=== PATIENT | male | born 1940 | race Caucasian/White ===

== ENCOUNTER 2024-05-22 12:51 | Inpatient (IN) | payer MEDICARE ==
[~2024-05-22] VITALS: Ht 180.3 cm; Wt 93.4 kg
[2024-05-22 13:00] VITALS: BP_SYST 151
--- NOTE | 2024-05-22 13:50 | NUR ---
Pt. arrived to the floor with EMS. Pt. transfered to the bed. IV infusing per orders to rt. forearm site.
[2024-05-22] MEDS ORDERED: *Potassium Replacement Protocol MC SCH (14:00)
[2024-05-22 14:24] LABS: HEMOGLOBIN 12.8 g/dl (13.5-18.0); MEAN CELL VOLUME 88 fl (80.0-100.0); MEAN CORPUSCULAR HEMOGLOBIN 31 pg (27-31); MEAN CORPUSCULAR HGB CONC 35 g/dl (33.0-37.0); PLATELET COUNT 131 K/mm3 (130-400); RED BLOOD COUNT 4.13 M/mm3 (4.20-5.60); REDCELL DISTRIBUTION WIDTH-CV 15.6 % (11.5-14.5)
[2024-05-22 14:29] LABS: HEMATOCRIT 36.2 % (42.0-52.0)
[2024-05-22 14:38] LABS: CALCIUM 9.1 mg/dL (8.4-10.2); CREATININE, serum 1.01 mg/dL (0.72-1.25); POTASSIUM 3.9 mEq/L (3.5-4.5)
--- NOTE | 2024-05-22 14:50 | NUR ---
Pt. resting in bed with at bedside. Pt. is A&OX3, assessment compete. IV to rt. forearm patent. Pt. has 2 skin tears to rt. lateral forearm, area is scabbed. Bottom with reddness that is blanchable, will monitor. Pt. reports pain at a 7 on pain scale. Will give meds when orders. Pt. denies further needs. Call light within reach.
[2024-05-22] MEDS ORDERED: BYSTOLIC5 MG PO (14:56)
[2024-05-22] MEDS ORDERED: B-12 500 MCG PO (14:56)
[2024-05-22] MEDS ORDERED: COMTAN 200MG T200 MG PO (14:57)
[2024-05-22] MEDS ORDERED: DITROPAN XL 5MG5 M1 PO (14:58)
[2024-05-22] MEDS ORDERED: NATURAL E400 IU PO (14:59)
[2024-05-22] MEDS ORDERED: MEVACOR 20M20 MG/TAB PO (14:59)
[2024-05-22 15:00] VITALS: BP_SYST 151
[2024-05-22] MEDS ORDERED: PLAVIX 75MG TAB75 MG PO (15:00)
[2024-05-22] MEDS ORDERED: PROVIGIL200 MG PO (15:00)
[2024-05-22] MEDS ORDERED: SINEMET 25/101 UDTAB PO (15:01)
[2024-05-22] MEDS ORDERED: ARICEPT 5MG PO (15:02)
[2024-05-22] MEDS ORDERED: REQUIP XL2 MG PO (15:03)
[2024-05-22] MEDS ORDERED: Modafinil 100 MG TAB PO SCH (15:41)
[2024-05-22] MEDS ORDERED: NS 1,000 ML IV SCH (15:45)
[2024-05-22] MEDS ORDERED: Atorvastatin 40 MG TAB PO ONE (15:45)
[2024-05-22 16:00] VITALS: BP 151/81; PULSE 80; TEMP 98.2
[2024-05-22] MEDS ORDERED: Ondansetron 4 MG/2 ML VIAL IV PRN (16:00)
[2024-05-22] MEDS ORDERED: Morphine 4 MG/ML VIAL IV PRN (16:00)
[2024-05-22] MEDS ORDERED: Acetaminophen 325 MG TAB PO PRN (16:00)
--- NOTE | 2024-05-22 17:15 | NUR ---
Received report from RADHA Burgos. Pt's Griffin leaking. Repositioned Griffin. Griffin Balloon had 9 cc water, added 5 cc. Total of 14cc in balloon. Pt messing with IV and pulled IV out of R forearm. RADHA Vazquez placed 20G in L forearm. Wrapped jacquie bandage around IV. Normal Saline running at 100 cc/hr. Pt has no further needs at this time. Call light in reach and bed alarm on.
[2024-05-22 19:56] VITALS: BP 157/71; PULSE 78; TEMP 98.3
--- NOTE | 2024-05-22 20:00 | NUR ---
PATIENT IS CONFUSED WITH A HX OF DEMENTIA & PARKINSON'S. VSS. DAY SHIFT RN GOT ORDER TO DC TELE PATIENT KEPT PULLING IT OFF REPEATEDLY, SEE ORDERS. PATIENT ALSO PULLED OUT HIS IV BEFORE SHIFT CHANGE AND DAY SHIFT RN PLACED A NEW IV INTO LEFT FORARM, COVERED SITE WITH COBAN, AND IV FLUIDS INFUSING VIA PUMP. PATIENT NPO @ MIDNIGHT FOR SURGERY IN AM. EVENING MEDS GIVEN WITH SIPS. PATIENT SEEMS RESTLESS AND APPEARED TO BE UNCOMFORTABLE, GAVE PRN NORCO WITH HS MEDS. PATIENT ALSO PULLING AT SMITH AND SNAPPED STAT LOCK OFF, REPLACED STAT LOCK AND SMITH TO DD WITH MOD AMOUNTS OF BRANDAN COLORED URINE NOTED. HEAD TO TOE ASSESSMENT COMPLETE. CALL LIGHT IN REACH. BED ALARM ON. PATIENT ROOM ACCROSS FROM NURSES STATION.
[2024-05-22 21:08] VITALS: BP_SYST 157
--- NOTE | 2024-05-22 21:45 | NUR ---
PATIENT SET OFF BED ALARM AND HAD FRACTURED LEG OVER BED RAIL AND WAS TRYING TO GET UP. PATIENT HAD SMITH IN HIS HAND AND WAS TRYING TO PULL IT OUT, BALLOON INFLATED, NURSING WAS ABLE TO STOP HIM. PATIENT REPOSITIONED UP IN BED. NOTIFIED HOSPITALIST, KELVIN APPLIED TO MARCIAE. PATIENT RESTING IN BED WITH CALL LIGHT, BED ALARM ON AND NURSING ABLE TO VIEW HIM.
[2024-05-22 23:04] VITALS: BP 123/68; PULSE 87; TEMP 97.7
[2024-05-23] VITALS (17 sets, daily range): BP systolic 138–162; BP diastolic 57–85; PULSE 66–90; TEMP 97.5–98.8
--- NOTE | 2024-05-23 01:00 | NUR ---
PATIENT YELLING OUT BUT SETTLED DOWN EASILY WHEN NURSING ENTERED ROOM. PATIENT DIDN'T KNOW WHERE HE WAS, HE HAS A HX OF DEMENTIA. PATIENT HAS NOT PULLED AT IV OR SMITH WITH MITTS INPLACE AND HAS BEEN RESTING OFF & ON.
--- NOTE | 2024-05-23 04:45 | NUR ---
PATIENT CALM, HAS BEEN SLEEPING, NOT RESTLESS OR AGGITATED. BUE MITTS REMOVED.
[2024-05-23 06:20] LABS: BASO # 0.1 K/mm3 (0.0-0.2); BASO % 0.6 % (0.0-2.0); EOS # 0.3 K/mm3 (0.0-0.7); EOS % 2.6 % (0.0-4.0); GRAN # 7.9 K/mm3 (1.4-6.5); GRAN % 79.1 % (42.2-75.2); HEMOGLOBIN 12.8 g/dl (13.5-18.0); LYMPH # 0.7 K/mm3 (1.2-3.4); LYMPH % 7.2 % (20.0-51.0); MEAN CELL VOLUME 87 fl (80.0-100.0); MEAN CORPUSCULAR HEMOGLOBIN 31 pg (27-31); MEAN CORPUSCULAR HGB CONC 35 g/dl (33.0-37.0); MONO # 0.9 K/mm3 (0.1-0.6); MONO % 9.4 % (1.7-9.3); PLATELET COUNT 121 K/mm3 (130-400); RED BLOOD COUNT 4.18 M/mm3 (4.20-5.60); REDCELL DISTRIBUTION WIDTH-CV 15.6 % (11.5-14.5)
[2024-05-23 06:40] LABS: ALBUMIN 3.2 g/dL (3.4-4.8); CALCIUM 8.8 mg/dL (8.4-10.2); CREATININE, serum 0.92 mg/dL (0.72-1.25); MAGNESIUM 1.9 mg/dL (1.6-2.6); PHOSPHOROUS 2.4 mg/dL (2.3-4.7)
[2024-05-23 06:42] LABS: HEMATOCRIT 36.5 % (42.0-52.0)
--- NOTE | 2024-05-23 08:49 | NUR ---
Pt resting in bed with pain 9/10 in right hip and ribs. PRN pain medication provided per emar. At shift change pt A/O x2 and this nurse attempted to reorient. At this time pt able to answer all orientation questions and follow commands. at bedside, signed surgical consents, pt remains NPO, mepolex to right forearm for 2 skin tears CDI. No needs at this time, will continue to monitor.
[2024-05-23] MEDS ORDERED: ROPINIROLE 2 MG PO SCH (09:00)
[2024-05-23] MEDS ORDERED: Bisoprolol 5 MG TAB PO SCH (09:00)
[2024-05-23] MEDS ORDERED: fentaNYL 50 MCG/ML 2 ML VIAL ONE (10:07)
[2024-05-23] MEDS ORDERED: Lidocaine PF 2% (20 MG/ML) 5 ML VIAL ONE (10:08)
[2024-05-23] MEDS ORDERED: Morphine 4 MG/ML VIAL IV PRN (10:30)
[2024-05-23] MEDS ORDERED: Mag/Al Hydrox/Simeth Susp 30 ML CUP PO PRN (10:30)
[2024-05-23] MEDS ORDERED: diphenhydrAMINE 25 MG CAP PO PRN (10:30)
[2024-05-23] MEDS ORDERED: diphenhydrAMINE 50 MG/ML 1 ML VIAL IV PRN (10:30)
[2024-05-23] MEDS ORDERED: Naloxone 0.4 MG/ML VIAL IV PRN (10:30)
[2024-05-23] MEDS ORDERED: Docusate Sodium 100 MG CAP PO PRN (10:30)
[2024-05-23] MEDS ORDERED: Magnes Hydrox (MOM) 80 MG/ML 30 ML CUP PO PRN (10:30)
[2024-05-23] MEDS ORDERED: dexAMETHasone 10 MG/ML VIAL ONE (10:45)
[2024-05-23] MEDS ORDERED: Ondansetron 4 MG/2 ML VIAL ONE (10:45)
[2024-05-23] MEDS ORDERED: HYDROmorphone 1 MG/1 ML SYRINGE [PACU/SDC ONLY] IV PRN (11:00)
[2024-05-23] MEDS ORDERED: Ondansetron 4 MG/2 ML VIAL IV PRN (11:00)
[2024-05-23] MEDS ORDERED: Morphine 2 MG/1 ML VIAL [PACU/SDC ONLY] IV PRN (11:00)
[2024-05-23] MEDS ORDERED: droPERidol 2.5 MG/ML 2 ML VIAL IV PRN (11:00)
[2024-05-23] MEDS ORDERED: fentaNYL 50 MCG/ML 1 ML SYRINGE/VIAL [PACU/SDC ONLY] IV PRN (11:00)
[2024-05-23] MEDS ORDERED: Meperidine 50 MG/ML 1 ML VIAL IV PRN (11:00)
--- NOTE | 2024-05-23 11:22 | NUR ---
JUNIOR met with patient and his Joceline ([phone]) to complete initial assessment for discharge planning. Patient sleeping during most of visit due to medication. verified that they live in [place], [place], patient sees Dr. Ronald Tsai as his PCP and uses [facility]. Patient has a FWW, rollator walker, shower chair and grab bars. states patient has a CPAP but doesn't use it. reports to be DPOA and can provide a copy for chart. Patient is mostly independent with activities but does not drive anymore due to Parkinson's Disease per report. stated patient is scheduled for surgery this morning and they are asking for referral to [facility]. Referral will be faxed for review. Discharge plan: [facility]
--- NOTE | 2024-05-23 12:05 | NUR ---
Pt up from PACU at this time very drowsy but able to obey verbal commands. Vitals stable on 2L NC, 2 incisions to right hip CDI with gauze and tegaderm, family at bedside. Will continue to allow pt to rest before any PO intake. Call light within reach.
--- NOTE | 2024-05-23 14:16 | NUR ---
D: Stuffing Machine Operator stopped by room on rounds. A: Pt was asleep with and son in the room. Pt had just arrived back from surgery. Family asked for prayer for a quick recovery. Stuffing Machine Operator prayed with everyone in the room. Family appreciated the visit. P: Stuffing Machine Operator informed family that if they needed anything from the still operator helper area to let their nurse know. Stuffing Machine Operator will follow up as needed.
[2024-05-23] MEDS ORDERED: ceFAZolin 2 G in Water For Injection,Sterile 20 ML IV SCH (15:00)
--- NOTE | 2024-05-23 16:30 | NUR ---
Pt resting in bed with eyes closed and family at bedside. Pt will open eyes and follow commands but very few verbal responses. When this nurse asked about pain pt drifted off to sleep. Pt tolerating sponge to keep mouth wet for comfort. Pt able to feel touch on bottom of foot but unable to describe sensation at this time. Pt able to move toes, cap refil < 3 seconds, skin pink and warm. TEDs and SCDs in place, vitals stable, no needs at this time, will continue to monitor.
--- NOTE | 2024-05-23 20:00 | NUR ---
PATIENT IS CONFUSED WITH A HX OF DEMENTIA & PARKINSON'S. DAY SHIFT REPORTS PATIENT WAS A&O DURING THE DAY. PATIENT IS ORIENTED TO PERSON AND TIME OF DAY BUT NOTHING ELSE. VSS. PATIENT VERY DROWSY POST OP AND RN REPORTED HE SLEPT MOST OF THE DAY. IV FLUIDS INFUSING VIA PUMP INTO LEFT FORARM IV. SMITH TO DD WITH MOD AMOUNTS OF YELLOW URINE NOTED. HEAD TO TOE ASSESSMENT COMPLETE. HS MEDS CRUSHED AND GIVEN IN APPLESAUCE DUE TO POSTOP DROWSINESS, TOLERATED WELL. TEDS & SCD'S INPLACE. NO OTHER NEEDS AT THIS TIME. CALL LIGHT IN REACH. BED ALARM ON. PATIENT ACROSS FROM NURSES STATION.
[2024-05-23] MEDS ORDERED: Melatonin 3 MG TAB PO PRN (21:00)
--- NOTE | 2024-05-23 21:55 | NUR ---
PATIENT PULLED IV SITE OUT AGAIN FOR THE SECOND NIGHT IN A ROW. DAY SHIFT REPORTS HE WAS A&O BUT HE IS ONLY ORIENTED TO PERSON AT THIS TIME. PATIENT SEEMS TO HAVE SUFFER FROM SUNDOWNERS. PATIENT ALSO SNAPPED HIS SMITH STAT LOCK OFF AND BROKE IT. HOSPITALIST NOTIFIED, KELVIN STERN APPLIED, SEE NEW MED ORDERED.
[2024-05-23] MEDS ORDERED: traZODone 50 MG TAB PO SCH (22:15)
[2024-05-24] VITALS (13 sets, daily range): BP systolic 122–159; BP diastolic 64–77; PULSE 64–77; TEMP 97.6–98.8
[2024-05-24 08:08] LABS: BASO # 0.1 K/mm3 (0.0-0.2); BASO % 0.5 % (0.0-2.0); EOS % 0.4 % (0.0-4.0); HEMATOCRIT 35.9 % (42.0-52.0); HEMOGLOBIN 12.6 g/dl (13.5-18.0); LYMPH % 9.9 % (20.0-51.0); MEAN CELL VOLUME 88 fl (80.0-100.0); MEAN CORPUSCULAR HEMOGLOBIN 31 pg (27-31); MEAN CORPUSCULAR HGB CONC 35 g/dl (33.0-37.0); PLATELET COUNT 128 K/mm3 (130-400); RED BLOOD COUNT 4.06 M/mm3 (4.20-5.60); REDCELL DISTRIBUTION WIDTH-CV 15.8 % (11.5-14.5)
[2024-05-24 08:44] LABS: ALBUMIN 2.9 g/dL (3.4-4.8); CALCIUM 8.5 mg/dL (8.4-10.2); CREATININE, serum 1.09 mg/dL (0.72-1.25); MAGNESIUM 1.9 mg/dL (1.6-2.6); PHOSPHOROUS 2.7 mg/dL (2.3-4.7)
[2024-05-24] MEDS ORDERED: Clopidogrel 75 MG TAB PO SCH (09:00)
--- NOTE | 2024-05-24 10:53 | NUR ---
JUNIOR resent referral to [facility] due to JUNIOR Larrydwayne being notified that they did not receive the complete referral packet. Referral also faxed to [facility] and [facility] per 's request. Discharge plan: [facility]
--- NOTE | 2024-05-24 13:16 | NUR ---
health worker attended clinical rounding and was informed pt can discharge tomorrow. JUNIOR called [facility] and spoke with the nurse's desk who reports their DON is out, but they are still reviewing and will have an question soon. She questioned if nursing homes were discussed. JUNIOR advised it did not appear so from the inital intake as [facility] was their first choice. JUNIOR met with pt and informed him of the [facility] still reviewing and wanting to discuss nursing homes. SW left the Medicare.gov list of SNF's in his room. Pt was slow to process and did not appear to fully comprehend in the morning, he does state he will review with his and she could drive him to [facility]. JUNIOR called , Joceline and obtained second options due to [facility] still reviewing and being able to discharge. Medicare.gov list was reviewed via phone due to her not visiting today. She was interested in [facility] and [facility], but first choice is [facility]. JUNIOR was later informed pt was accepted to [facility]. JUNIOR called who was agreeable to this. Discharge Plan: [facility] tomorrow
--- NOTE | 2024-05-24 16:03 | NUR ---
JUNIOR received call from Amy at [facility] with multiple questions related to referral. JUNIOR reviewed chart and discovered patient is accepted to [facility] for discharge tomorrw. JUNIOR called Amy at [facility] back to notify her of secured placement.
--- NOTE | 2024-05-24 16:50 | NUR ---
SMITH CATHETER DISCONTINUED PER ORDERS TIP INTACT PT TOLERATE WELL.
--- NOTE | 2024-05-24 19:29 | NUR ---
SHIFT ASSESSMENT COMPLETE. VSS. PATIENT RESTING IN BED WATCHING TV. PATIENT CURRENTLY A&O X4 AT THIS TIME, RECEIVED IN REPORT HIS CONFUSION COMES AT NIGHT. WILL CONTINUE TO MONITOR THROUGHT THE NIGHT. ALL NIGHT MEDS GIVEN ORDERED. PATIENT STATES NO PAIN AT THIS TIME. BED ALARM ON AND CALL LIGHT IN REACH
[2024-05-25 00:14] VITALS: BP 145/79; PULSE 65; TEMP 98
[2024-05-25 00:17] VITALS: BP_SYST 145
[2024-05-25 03:51] VITALS: BP 127/71; PULSE 62; TEMP 98
[2024-05-25 04:59] VITALS: BP_SYST 127
--- NOTE | 2024-05-25 05:35 | NUR ---
PATIENT HAD A LITTLE TROUBLE GETTING TO SLEEP LAST AND SLEEPING THROUGHT THE NIGHT. GAVE PATIENT SOME PRN SLEEP AID TO HELP, BUT THAT WAS NOT VERY SUCCESSFUL. PATIENT HAD ONEEPISIOD OF CONFUSION EARLY THIS AM BUT WAS REORIANTED EASILY. PATIENT EXPRESSED PAIN IN RIGHT HIP ONLY WITH MOVMENT. PATIENT HAS NO OTHER REQUEST OR CONCERNS AT THIS TIME. BED ALARM ON AND CALL LIGHT IN REACH
[2024-05-25 06:37] LABS: BASO # 0.1 K/mm3 (0.0-0.2); BASO % 0.8 % (0.0-2.0); EOS # 0.3 K/mm3 (0.0-0.7); GRAN # 6.1 K/mm3 (1.4-6.5); GRAN % 71.4 % (42.2-75.2); HEMOGLOBIN 11.4 g/dl (13.5-18.0); LYMPH # 1.2 K/mm3 (1.2-3.4); LYMPH % 13.5 % (20.0-51.0); MEAN CELL VOLUME 89 fl (80.0-100.0); MEAN CORPUSCULAR HEMOGLOBIN 30 pg (27-31); MEAN CORPUSCULAR HGB CONC 34 g/dl (33.0-37.0); MONO # 0.8 K/mm3 (0.1-0.6); MONO % 9.1 % (1.7-9.3); PLATELET COUNT 117 K/mm3 (130-400); RED BLOOD COUNT 3.76 M/mm3 (4.20-5.60); REDCELL DISTRIBUTION WIDTH-CV 15.8 % (11.5-14.5)
[2024-05-25 06:44] LABS: HEMATOCRIT 33.3 % (42.0-52.0)
[2024-05-25 06:50] LABS: ALBUMIN 2.7 g/dL (3.4-4.8); CALCIUM 8.2 mg/dL (8.4-10.2); CREATININE, serum 0.86 mg/dL (0.72-1.25); POTASSIUM 3.8 mEq/L (3.5-4.5)
[2024-05-25] MEDS ORDERED: Potassium Bicarbonate/Citrate 20 MEQ Effervescent TAB PO ONE (07:15)
[2024-05-25 07:16] LABS: MAGNESIUM 1.8 mg/dL (1.6-2.6); PHOSPHOROUS 2.9 mg/dL (2.3-4.7)
--- NOTE | 2024-05-25 07:44 | NUR ---
Pt. resting in bed upon entry. Pt. is incontinent of urine. Performed perineal care then assisted pt. to chair w/ RADHA Colvin, and ANDREIA Arias. Pt. is able to follow directions and answers orientation questions correctly . Administered scheduled medications per JAN. RADHA Colvin, applied ANGEL hose to BLE. Performed shift assessment. Noted 2x scabbed skin tears to R forearm and a scabbed abrasion to L anterior aspect of scalp approx. 3" in length. Inner aspect of buttocks appears slightly reddened. No other apparent skin issues. All other findings WNL. Pt. denies pain or further requests. Breakfast set up for pt. Call light in reach.
[2024-05-25 08:00] VITALS: BP 135/76; PULSE 63; TEMP 97.7
[2024-05-25 08:56] VITALS: BP_SYST 135
[2024-05-25] MEDS ORDERED: DESYREL 50MG50 MG PO (10:04)
[2024-05-25] MEDS ORDERED: NORCO 325 MG-51 TAB PO (10:05)
--- NOTE | 2024-05-25 10:29 | NUR ---
SW informed that patient stable for discharge to [facility]. Discharge orders and updated clinicals faxed to [facility]. notified of discharge and agreeable to transport patient. SW called and was informed for patient to arrive by 2 pm. Staff notified of discharge plan.
--- NOTE | 2024-05-25 10:32 | NUR ---
caseworker was informed by Binman Harsh that pt can discharge to [facility] after lunch time. JUNIOR called [facility]'s nurse's station to confirm the discharge today. They would like pt to arrive early afternoon. JUNIOR obtained nurse report number [phone] and Doctor to Doctor report as [phone]. JUNIOR provided this to JOANNE Muhammad and RN Marii. JUNIOR found pt's , Joceline in the carmona to discuss discharge plan. JUNIOR went over IM from Medicare, she signed and verbalized understanding. Copy provided and original in chart. JUNIOR advised of them leaving arounf 12pm to arrive by 1pm per the facility request for early afternoon acceptance. No further questions. Discharge Plan: [facility]
--- NOTE | 2024-05-25 12:30 | NUR ---
Pt discharged. INT discontinued w/ catheter tip intact. Accompanied pt to POV w/ RADHA Colvin, via w/c. Pt's and daughter also accompanied pt. Assisted pt into vehicle. Discharge packet sent w/ pt's family.
--- NOTE | 2024-05-25 12:55 | NUR ---
report called to Frida at [facility], all questions answered.
== END 2024-05-25 12:30 | disposition swing bed (61) | DRG 482 ==
LOC: SURG 12:51
PROVIDERS: Orthopaedic Surgery; ADMIT Internal Medicine
PROC: 0QS636Z Reposition Right Upper Femur with Intramedullary Internal Fixation Device, Percutaneous Approach (ICD-10-PCS; principal; 2024-05-23 10:30)
DX: S72.011A Unspecified intracapsular fracture of right femur, initial encounter for closed fracture (principal); I10 Essential (primary) hypertension; I25.10 Atherosclerotic heart disease of native coronary artery without angina pectoris; G20.A1 Parkinson's disease without dyskinesia, without mention of fluctuations; W18.39XA Other fall on same level, initial encounter; Y93.89 Activity, other specified; Y92.098 Other place in other non-institutional residence as the place of occurrence of the external cause; Z79.02 Long term (current) use of antithrombotics/antiplatelets; Z79.899 Other long term (current) drug therapy; Z23 Encounter for immunization
CPT/HCPCS: A9284; C1713; J0665; J0690; J1100; J2270; J2405; J2704; J3010; J7030